=== PATIENT | female | born 1975 | race Caucasian/White ===

== ENCOUNTER 2017-05-27 09:19 | Emergency (ER) | payer OTHER ==
[~2017-05-27] VITALS: Ht 165.1 cm; Wt 81.8 kg
[~2017-05-27 09:19] MED LIST: AMOXICILLIN 50500 MG PO; CEFTIN500 MG PO; CIPRO 250MG TA250 MG PO; FLOMAX 0.40.4 MG/CAP PO; FLOMAX0.4 MG PO; NO HOME MEDICATIONS; NORCO 325 MG-51 TAB PO; NORCO 325 MG-7.1 TAB PO; PERCOCET 325 MG1 TA2 PO; PHENERGAN 25 TA25 MG PO; TYLENOL 500MG500 MG PO; ZOFRAN ODT8 MG PO
[2017-05-27 09:22] VITALS: BP 124/75; PULSE 95; TEMP 99.9
[2017-05-27] MEDS ORDERED: CLEOCIN HCL300 MG PO (10:10)
[2017-05-27] MEDS ORDERED: PERCOCET 325 MG1 TA2 PO (10:10)
[2017-05-27] MEDS ORDERED: PRENATAL PO (14:24)
== END 2017-05-27 14:37 | disposition home or self-care (01) ==
LOC: COL.ER 09:19
DX: O99.611 Diseases of the digestive system complicating pregnancy, first trimester (principal); K04.7 Periapical abscess without sinus; K08.89 Other specified disorders of teeth and supporting structures; K03.81 Cracked tooth; Z3A.09 9 weeks gestation of pregnancy

== ENCOUNTER 2019-06-22 09:31 | Emergency (ER) | payer OTHER ==
[~2019-06-22] VITALS: Ht 165.1 cm; Wt 84.1 kg
[~2019-06-22 09:31] MED LIST changes: +CLEOCIN HCL300 MG PO; +PRENATAL PO
[2019-06-22 09:39] VITALS: BP 133/98; TEMP 98.7
[2019-06-22] MEDS ORDERED: NORCO 325 MG-7.1 TAB PO (09:55)
[2019-06-22] MEDS ORDERED: AMOXICILLIN 8751 TAB PO (09:55)
[2019-06-22 10:30] VITALS: PULSE 101
== END 2019-06-22 10:25 | disposition home or self-care (01) ==
LOC: COL.ER 09:31
DX: K04.7 Periapical abscess without sinus (principal)

== ENCOUNTER 2021-11-23 07:03 | Day surgery (SDC) | payer OTHER ==
[~2021-11-23] VITALS: Ht 162.6 cm; Wt 90.0 kg
[2021-11-23] VITALS (7 sets, daily range): BP systolic 119–149; BP diastolic 71–102; PULSE 67–95; TEMP 98.1–98.6
[~2021-11-23 07:03] MED LIST changes: +AMOXICILLIN 8751 TAB PO
--- NOTE | 2021-11-23 09:44 | NUR ---
Blood pressure on re check 139/84.
[2021-11-23] MEDS ORDERED: NORCO 325 MG-51 TAB PO (14:11)
--- NOTE | 2021-11-23 15:00 | NUR ---
Patient returns to room 1 per cart from PACU and is awake and alert. IV fluids infusing and site is free of redness or swelling. Dressing to upper right side of back clean and dry. Exofin skin glue on the right axilla dry with wound edges well approximated. Denies nausea. Given Sprite to drink. Siderails up x2 and call light in reach. Family member in room. Allowed to rest.
--- NOTE | 2021-11-23 15:15 | NUR ---
Eating crackers. Denies nausea. IV fluids infusing.
--- NOTE | 2021-11-23 15:30 | NUR ---
States that she is having some discomfort to lymph node biopsy site. Small ice bag applied. Wound edges well approximated.
--- NOTE | 2021-11-23 15:44 | NUR ---
[place] 5mg on tab given for complaints of pain. Eating crackers and drinking Sprite.
--- NOTE | 2021-11-23 15:45 | NUR ---
Resting and talking with family
--- NOTE | 2021-11-23 16:00 | NUR ---
Resting and continues to deny nausea. Talking with family.
--- NOTE | 2021-11-23 16:30 | NUR ---
IV to INT. Assisted up to the bathroom and gait is steady. Voids and returns to room.
--- NOTE | 2021-11-23 16:40 | NUR ---
INT discontinued and site is free of redness. Dresses self.
--- NOTE | 2021-11-23 16:45 | NUR ---
Given dismissal instructions and voices understanding of these. Provided office number for questions and concerns.
== END 2021-11-23 16:53 | disposition home or self-care (01) ==
LOC: SDCO 07:03
DX: C43.59 Malignant melanoma of other part of trunk (principal); I10 Essential (primary) hypertension; Z85.43 Personal history of malignant neoplasm of ovary; Z83.3 Family history of diabetes mellitus; Z80.3 Family history of malignant neoplasm of breast
CPT/HCPCS: A9520; J0690; J1100; J1170; J2405; J2704; J3010; J7120

== ENCOUNTER → 2022-04-06 | Outpatient (CLI) | payer OTHER | LOC: COL.RAD 08:03 | DX: K44.9 Diaphragmatic hernia without obstruction or gangrene (principal); C43.59 Malignant melanoma of other part of trunk; R91.1 Solitary pulmonary nodule | CPT/HCPCS: Q9967 ==

== ENCOUNTER → 2023-09-14 | Outpatient (CLI) | payer OTHER ==
[~2023-09-14] VITALS: Ht 162.6 cm; Wt 79.6 kg
[2023-09-14 08:50] VITALS: BP 147/86; PULSE 65; TEMP 98
[2023-09-14 10:14] VITALS: BP 167/92; PULSE 69
== END ==
LOC: COL.RAD 08:28
DX: C43.59 Malignant melanoma of other part of trunk (principal)

== ENCOUNTER → 2024-01-09 | Outpatient (CLI) | payer OTHER ==
[2006-01-16 07:00] VITALS: BP 106/69; PULSE 62; TEMP 97.8
== END ==
LOC: MC.RAD 07:59
DX: Z12.31 Encounter for screening mammogram for malignant neoplasm of breast (principal)

== ENCOUNTER 2024-04-13 03:59 | Emergency (ER) | payer OTHER ==
[~2024-04-13] VITALS: Ht 167.6 cm; Wt 85.9 kg
[2024-04-13 04:06] VITALS: TEMP 98.4
[2024-04-13] MEDS ORDERED: Ondansetron 4 MG/2 ML VIAL IV ONE (04:45)
[2024-04-13] MEDS ORDERED: LORazepam 2 MG/ML 1 ML VIAL IV ONE (04:45)
[2024-04-13] MEDS ORDERED: NS 1,000 ML IV ONE (04:45)
[2024-04-13 04:51] LABS: BASO % 0.7 % (0.0-2.0); EOS # 0.2 K/mm3 (0.0-0.7); EOS % 3.3 % (0.0-4.0); GRAN # 4.4 K/mm3 (1.4-6.5); GRAN % 73.4 % (42.2-75.2); LYMPH % 15.7 % (20.0-51.0); MEAN CELL VOLUME 92 fl (80.0-100.0); MEAN CORPUSCULAR HGB CONC 30 g/dl (33.0-37.0); MEAN PLATELET VOLUME 8.7 fl (7.4-10.4); MONO # 0.4 K/mm3 (0.1-0.6); MONO % 6.6 % (1.7-9.3); PLATELET COUNT 232 K/mm3 (130-400); RED BLOOD COUNT 3.56 M/mm3 (4.10-5.30)
[2024-04-13 04:54] LABS: HEMATOCRIT 32.6 % (37.0-47.0); HEMOGLOBIN 9.9 g/dl (12.5-16.0); MEAN CORPUSCULAR HEMOGLOBIN 28 pg (27-31)
[2024-04-13 05:08] LABS: ALBUMIN 3.5 g/dL (3.5-5.0); BILIRUBIN,TOTAL 0.5 mg/dL (0.2-1.2); CALCIUM 8.6 mg/dL (8.4-10.2); CREATININE, serum 0.67 mg/dL (0.57-1.11); POTASSIUM 3.9 mEq/L (3.5-4.5); TOTAL PROTEIN 6.8 g/dl (6.2-8.1)
[2024-04-13 05:12] LABS: PROTHROMBIN TIME 11.2 SECONDS (9.7-12.8)
[2024-04-13 05:15] LABS: PARTIAL THROMBOPLASTIN TIME 26.6 SECONDS (26.0-37.0)
[2024-04-13] MEDS ORDERED: ATARAX 25MG25 MG/TAB PO (06:34)
[2024-04-13] MEDS ORDERED: ZOFRAN ODT4 MG PO (06:34)
[2024-04-13 06:36] VITALS: BP 124/98; PULSE 77
== END 2024-04-13 06:50 | disposition home or self-care (01) ==
LOC: COL.ER 03:59
PROVIDERS: Emergency Medicine
DX: G47.00 Insomnia, unspecified (principal); R11.0 Nausea; R53.81 Other malaise
CPT/HCPCS: J2060; J2405; J7030

== ENCOUNTER 2024-06-13 14:31 | Emergency (ER) | payer OTHER ==
[~2024-06-13] VITALS: Ht 165.1 cm; Wt 79.5 kg
[~2024-06-13 14:31] MED LIST changes: +ATARAX 25MG25 MG/TAB PO; +ZOFRAN ODT4 MG PO
[2024-06-13 14:39] VITALS: TEMP 98.4
[2024-06-13 16:35] VITALS: BP 131/88; PULSE 88
== END 2024-06-13 16:35 | disposition home or self-care (01) ==
LOC: COL.ER 14:31
DX: R22.0 Localized swelling, mass and lump, head (principal)

== ENCOUNTER → 2024-07-21 | Outpatient (CLI) | payer OTHER ==
[2024-07-21 10:14] LABS: HEMOGLOBIN 10.7 g/dl (12.5-16.0); MEAN CELL VOLUME 81 fl (80.0-100.0); MEAN CORPUSCULAR HEMOGLOBIN 24 pg (27-31); MEAN CORPUSCULAR HGB CONC 30 g/dl (33.0-37.0); MEAN PLATELET VOLUME 9.4 fl (7.4-10.4); PLATELET COUNT 244 K/mm3 (130-400); RED BLOOD COUNT 4.39 M/mm3 (4.10-5.30); REDCELL DISTRIBUTION WIDTH-CV 16.1 % (11.5-14.5)
[2024-07-21 10:23] LABS: ALBUMIN 3.4 g/dL (3.5-5.0); BILIRUBIN,TOTAL 0.5 mg/dL (0.2-1.2); CALCIUM 9.2 mg/dL (8.4-10.2); CREATININE, serum 0.72 mg/dL (0.57-1.11); POTASSIUM 3.9 mEq/L (3.5-4.5); TOTAL PROTEIN 7.1 g/dl (6.2-8.1)
[2024-07-21 10:39] LABS: HEMATOCRIT 35.5 % (37.0-47.0)
[2024-07-21 10:44] LABS: THYROID STIMULATING HORMONE 0.889 uIU/mL (0.350-4.940)
[2024-07-21 11:54] LABS: EOSINOPHIL 2 % (0-4); LYMPHOCYTE 30 % (20.0-51.0); NEUTROPHILS 57 % (42.0-75.2)
== END ==
LOC: COL.LAB 09:13
PROVIDERS: Internal Medicine
DX: C43.59 Malignant melanoma of other part of trunk (principal)

== ENCOUNTER 2024-07-30 14:49 | Emergency (ER) | payer OTHER ==
[~2024-07-30] VITALS: Ht 170.2 cm; Wt 72.7 kg
[2024-07-30 14:54] VITALS: TEMP 98.2
[2024-07-30] MEDS ORDERED: NS 1,000 ML IV ONE (17:45)
[2024-07-30 18:21] LABS: COLLECTION METHOD CLEAN CATCH
[2024-07-30 18:31] LABS: PH 5.5 (5.0-8.5); URINE APPEARANCE CLOUDY (CLEAR/HAZY); URINE BLOOD 3+ (NEGATIVE); URINE COLOR YELLOW (YELLOW); URINE GLUCOSE NEGATIVE (NEGATIVE); URINE KETONE 3+ (NEGATIVE); URINE NITRATE NEGATIVE (NEGATIVE); URINE PROTEIN(semi-quant) TRACE (NEGATIVE)
[2024-07-30 19:04] LABS: ALBUMIN 3.7 g/dL (3.5-5.0); BILIRUBIN,TOTAL 0.5 mg/dL (0.2-1.2); C-REACTIVE PROTEIN 0.24 mg/dL (0.00-0.50); CALCIUM 9.6 mg/dL (8.4-10.2); CREATININE, serum 0.77 mg/dL (0.57-1.11); POTASSIUM 3.5 mEq/L (3.5-4.5); TOTAL PROTEIN 7.6 g/dl (6.2-8.1)
[2024-07-30 19:45] LABS: BASO # 0.1 K/mm3 (0.0-0.2); BASO % 1.9 % (0.0-2.0); EOS # 0.2 K/mm3 (0.0-0.7); EOS % 5.1 % (0.0-4.0); GRAN # 1.8 K/mm3 (1.4-6.5); GRAN % 48.6 % (42.2-75.2); HEMOGLOBIN 10.5 g/dl (12.5-16.0); LYMPH # 1.2 K/mm3 (1.2-3.4); LYMPH % 32.2 % (20.0-51.0); MEAN CELL VOLUME 77 fl (80.0-100.0); MEAN CORPUSCULAR HEMOGLOBIN 24 pg (27-31); MEAN CORPUSCULAR HGB CONC 32 g/dl (33.0-37.0); MEAN PLATELET VOLUME 9.7 fl (7.4-10.4); MONO # 0.4 K/mm3 (0.1-0.6); MONO % 11.9 % (1.7-9.3); PLATELET COUNT 218 K/mm3 (130-400); REDCELL DISTRIBUTION WIDTH-CV 15.4 % (11.5-14.5)
[2024-07-30 19:46] LABS: HEMATOCRIT 33.2 % (37.0-47.0)
[2024-07-30 19:53] LABS: ERYTHROCYTE SEDIMENTATION RATE 9 mm/hr (0-20); INR 1.2 (0.8-3.0); PROTHROMBIN TIME 12.5 SECONDS (9.7-12.8)
[2024-07-30 19:56] LABS: PARTIAL THROMBOPLASTIN TIME 28.6 SECONDS (26.0-37.0)
[2024-07-30] MEDS ORDERED: Iohexol 300 - 100 ML VIAL IV ONE (19:59)
[2024-07-30] MEDS ORDERED: NS 100 ML IV ONE (19:59)
[2024-07-30 20:30] VITALS: BP 118/81
[2024-07-30] MEDS ORDERED: Cyclobenzaprine 10 MG TAB PO ONE (21:30)
[2024-07-30 21:40] VITALS: PULSE 111
== END 2024-07-30 21:40 | disposition home or self-care (01) ==
LOC: COL.ER 14:49
PROVIDERS: Emergency Medicine; Family Medicine
DX: M79.605 Pain in left leg (principal); M54.9 Dorsalgia, unspecified; D50.9 Iron deficiency anemia, unspecified; D72.819 Decreased white blood cell count, unspecified; N93.9 Abnormal uterine and vaginal bleeding, unspecified; C71.9 Malignant neoplasm of brain, unspecified
CPT/HCPCS: J7030; Q9967

== ENCOUNTER 2024-08-07 11:25 | Inpatient (IN) | payer OTHER ==
[~2024-08-07] VITALS: Ht 165.1 cm; Wt 75.5 kg
[2024-08-07] MEDS ORDERED: NS 1,000 ML IV ONE (12:00)
[2024-08-07 12:08] LABS: BASO # 0.2 K/mm3 (0.0-0.2); BASO % 2.1 % (0.0-2.0); EOS # 0.5 K/mm3 (0.0-0.7); EOS % 6.7 % (0.0-4.0); GRAN % 55.6 % (42.2-75.2); HEMATOCRIT 40.7 % (37.0-47.0); HEMOGLOBIN 13.1 g/dl (12.5-16.0); LYMPH # 1.7 K/mm3 (1.2-3.4); LYMPH % 23.5 % (20.0-51.0); MEAN CELL VOLUME 75 fl (80.0-100.0); MEAN CORPUSCULAR HEMOGLOBIN 24 pg (27-31); MEAN CORPUSCULAR HGB CONC 32 g/dl (33.0-37.0); MEAN PLATELET VOLUME 9.7 fl (7.4-10.4); MONO # 0.9 K/mm3 (0.1-0.6); MONO % 11.8 % (1.7-9.3); PLATELET COUNT 353 K/mm3 (130-400)
[2024-08-07 12:24] LABS: ALANINE AMINOTRANSFERASE 21 U/L (0-55); ALBUMIN 3.6 g/dL (3.5-5.0); ALKALINE PHOSPHATASE 79 U/L (40-150); ANION GAP 14 mmol/L (7-16); AST,SGOT 29 U/L (5-34); BILIRUBIN,TOTAL 0.5 mg/dL (0.2-1.2); BLOOD UREA NITROGEN < 5 mg/dL (10-20); CALCIUM 9.5 mg/dL (8.4-10.2); CHLORIDE 98 mEq/L (98-107); CREATININE, serum 0.79 mg/dL (0.57-1.11); GLUCOSE 97 mg/dL (70-99); POTASSIUM 3.5 mEq/L (3.5-4.5); SODIUM 128 mEq/L (136-145); TOTAL PROTEIN 7.6 g/dl (6.2-8.1)
[2024-08-07] MEDS ORDERED: TOPROL XL 25MG25 MG PO (13:33)
[2024-08-07] MEDS ORDERED: REMERON 15M15 MG/TA1 PO (13:33)
[2024-08-07] MEDS ORDERED: COMPAZINE 110 MG/TAB PO (13:33)
[2024-08-07] MEDS ORDERED: Ondansetron 4 MG/2 ML VIAL IV PRN (14:15)
[2024-08-07] MEDS ORDERED: NS 1,000 ML IV SCH (14:15)
[2024-08-07] MEDS ORDERED: Acetaminophen 325 MG TAB PO PRN (14:15)
[2024-08-07] MEDS ORDERED: Prochlorperazine 10 MG TAB PO PRN (14:45)
[2024-08-07 15:19] VITALS: BP 115/78; PULSE 98; TEMP 98.3
--- NOTE | 2024-08-07 15:22 | NUR ---
EVELYN ARRIVED TO FLOOR FROM ED. PATIENT HAVING WEAKNESS AND FEELING DIZZY OFF AND ON. FALL PRECAUTIONS PUT IN PLACE. VSS. ADMISSION, ASSESSMNT, AND MED REC COMPLETED. PATIENT HAS NO NEEDS AT THIS TIME. IV FLUIDS STARTED ORDERED AND PATIENT DECLINED LOVENOX AT THIS TIME. BED ALARM ON AND CALL LIGHT IN REACH
[2024-08-07 16:14] VITALS: BP_SYST 115
[2024-08-07 16:45] VITALS: BP_SYST 115
[2024-08-07 19:07] LABS: ANION GAP 15 mmol/L (7-16); CALCIUM 8.7 mg/dL (8.4-10.2); CHLORIDE 101 mEq/L (98-107); CREATININE, serum 0.66 mg/dL (0.57-1.11); GLUCOSE 84 mg/dL (70-99); POTASSIUM 3.3 mEq/L (3.5-4.5); SODIUM 131 mEq/L (136-145)
[2024-08-07 19:10] LABS: BLOOD UREA NITROGEN < 5 mg/dL (10-20)
[2024-08-07 20:11] VITALS: BP 111/76; PULSE 99; TEMP 98.5
[2024-08-07 20:49] VITALS: BP_SYST 111
[2024-08-07] MEDS ORDERED: Mirtazapine 15 MG TAB PO SCH (21:00)
--- NOTE | 2024-08-07 22:38 | NUR ---
patient lying in bed, alert and oriented x4. denies chest pain/discomfort and shortness of breath. IV in RAC is patent, site CDI with NS running at 100 ml/hr. small red mary noted to left upper facial cheek, scarring and dry flaking skin to left scalp noted. fall precautions in place, call light within reach. family at bedside for pt anxiety relief, pt has no further needs, questions or concerns at this time.
[2024-08-07 23:51] VITALS: BP 114/82; PULSE 112; TEMP 98.8
[2024-08-08] VITALS (12 sets, daily range): BP systolic 112–124; BP diastolic 76–83; PULSE 97–112; TEMP 98.5–101.1
[2024-08-08 09:07] LABS: BASO # 0.1 K/mm3 (0.0-0.2); BASO % 2.5 % (0.0-2.0); EOS # 0.3 K/mm3 (0.0-0.7); EOS % 8.4 % (0.0-4.0); GRAN # 1.8 K/mm3 (1.4-6.5); LYMPH # 0.9 K/mm3 (1.2-3.4); LYMPH % 25.1 % (20.0-51.0); MEAN CELL VOLUME 74 fl (80.0-100.0); MEAN CORPUSCULAR HGB CONC 32 g/dl (33.0-37.0); MEAN PLATELET VOLUME 10.4 fl (7.4-10.4); MONO # 0.5 K/mm3 (0.1-0.6); MONO % 14.7 % (1.7-9.3); REDCELL DISTRIBUTION WIDTH-CV 15.8 % (11.5-14.5)
[2024-08-08 09:12] LABS: HEMATOCRIT 30.5 % (37.0-47.0); HEMOGLOBIN 9.8 g/dl (12.5-16.0); MEAN CORPUSCULAR HEMOGLOBIN 24 pg (27-31); PLATELET COUNT 215 K/mm3 (130-400)
[2024-08-08 09:22] LABS: ANION GAP 12 mmol/L (7-16); CALCIUM 8.2 mg/dL (8.4-10.2); CHLORIDE 106 mEq/L (98-107); GLUCOSE 72 mg/dL (70-99); POTASSIUM 3.3 mEq/L (3.5-4.5); SODIUM 132 mEq/L (136-145)
[2024-08-08 09:26] LABS: BLOOD UREA NITROGEN < 5 mg/dL (10-20)
--- NOTE | 2024-08-08 10:06 | NUR ---
CRITICAL LAB REPORTED CO2 [address] SALAZAR. NO NEW ORDERS AT THIS TIME.
--- NOTE | 2024-08-08 10:16 | NUR ---
SHIFT ASSESSMENT COMPLETE. PATIENT RESTING IN BED W/ DAUGHTER AT BED SIDE. IV TO RIGHT FOREARM W/NS RUNNING AT 100ML/HR PATIENT HAVING SOME NAUSEA THIS AM AFTER TRYING TO EAT BREAKFAST ZOFRAN GIVEN ORDERED AND GAVE PATIENT SOME CRACKERS AND WATER TO HELP EASE HER STOMACH. PATIENT AND DAUGHTER HAVE NO OTHER NEEDS AT THIS TIME. CALL LIGHT IN REACH AND BED ALARM ON.
--- NOTE | 2024-08-08 13:38 | NUR ---
restaurant worker met with patient and her daughter, Sandra P# [phone], to discuss discharge planning. Patient lives in [place]. When social work faculty member asked about whom patient lives with, she began to discuss where in [place] she lives. Sandra reported patient lives with her, her other daughter and grandkids. Mirlande, daughter, P# [phone]. PCP is Dr. Bañuelos, Pharmacy is [facility]. No issues affording medications. Insurance is [employer] but she has applied for Medicare but has not been approved yet. No DPOA-HC at this time, social work faculty member expressed if patient does not have a DPOA-HC then patient's decision making would go to her and children. Sandra reported patient is not currently , so her decisions would go to her children. SW will follow up if patient is able to complete a DPOA-HC when she is more alert. No DME at home and Sandra reports patient furniture and wall surfs at home so she may need a walker. Flores reports patient receives some assistance from getting out of the bath tub and assistance with dressing. Patient does not currently have any home health services. Patient's family transports her to and from appointments. Patient's last chemo appointment is scheduled for 08/14/24. Patient would like to return home at time of discharge. Discharge plan: Home
[2024-08-08] MEDS ORDERED: Ondansetron 4 MG/2 ML VIAL IV PRN (14:00)
--- NOTE | 2024-08-08 14:00 | NUR ---
D: Central [employer] Technician stopped by room on rounds. A: Pt was resting and content. Pt has no needs right now. P: Central Sterile Supply Technician informed pt that if she needed anything from the paper cone drying machine operator area to let her nurse know. Central Sterile Supply Technician will follow up as needed.
[2024-08-08] MEDS ORDERED: Potassium Chloride 100 ML IV SCH (14:45)
[2024-08-08] MEDS ORDERED: *Potassium Replacement Protocol MC SCH (14:45)
--- NOTE | 2024-08-08 15:01 | NUR ---
REPORT GIVEN TO CARRIE HENRY. PATIENT RESTING IN BED W/ DAUGHTER AT BEDSIDE. PATIENT EXPRESSED NO NEEDS AT THIS TIME. BED ALARM ON AND CALL LIGHT IN REACH
--- NOTE | 2024-08-08 15:22 | NUR ---
REPORT FROM WILTON BUTLER. ASSUMING PT CARE AT THIS TIME.
--- NOTE | 2024-08-08 16:54 | NUR ---
cold storage worker was notified patient needs a walker. SW secure emailed walker to [facility]. SW attempted to get home health choice from patient's daughter. SW was notified they had not made a decision quite yet. Discharge plan: Home with Home health
--- NOTE | 2024-08-08 21:51 | NUR ---
PATIENT ALERT AND ORIENTED X4. VSS. PATIENT HERE FOR DEHYDRATION. PATIENT DENIES ANY PAIN AT THIS TIME. IV TO RIGHT FA WITH NS RUNNING AT 100ML/HOUR. PATIENT ON RA. PM MEDS ADMINISTERED. NO FURTHER NEEDS. CALL LIGHT IN REACH. BED ALARM ON.
--- NOTE | 2024-08-08 22:36 | NUR ---
PATIENT TEMP REVEALED 101.1. PRN TYLENOL ADMINISTERED. BLANKETS REMOVED FROM PATIENT.
[2024-08-09] VITALS (12 sets, daily range): BP systolic 93–131; BP diastolic 63–87; PULSE 95–121; TEMP 97.7–100.5
[2024-08-09 08:27] LABS: BASO # 0.1 K/mm3 (0.0-0.2); BASO % 1.8 % (0.0-2.0); EOS # 0.3 K/mm3 (0.0-0.7); EOS % 7.2 % (0.0-4.0); GRAN % 51.6 % (42.2-75.2); HEMOGLOBIN 10.3 g/dl (12.5-16.0); LYMPH # 0.9 K/mm3 (1.2-3.4); LYMPH % 23.3 % (20.0-51.0); MEAN CELL VOLUME 77 fl (80.0-100.0); MEAN CORPUSCULAR HEMOGLOBIN 24 pg (27-31); MEAN CORPUSCULAR HGB CONC 32 g/dl (33.0-37.0); MEAN PLATELET VOLUME 10.1 fl (7.4-10.4); MONO # 0.6 K/mm3 (0.1-0.6); MONO % 15.6 % (1.7-9.3); PLATELET COUNT 224 K/mm3 (130-400); RED BLOOD COUNT 4.22 M/mm3 (4.10-5.30); REDCELL DISTRIBUTION WIDTH-CV 16.4 % (11.5-14.5)
[2024-08-09 08:29] LABS: HEMATOCRIT 32.6 % (37.0-47.0)
[2024-08-09 08:31] LABS: ANION GAP 11 mmol/L (7-16); CHLORIDE 103 mEq/L (98-107); CREATININE, serum 0.61 mg/dL (0.57-1.11); GLUCOSE 75 mg/dL (70-99); POTASSIUM 4.1 mEq/L (3.5-4.5); SODIUM 131 mEq/L (136-145)
[2024-08-09 08:34] LABS: BLOOD UREA NITROGEN < 5 mg/dL (10-20)
--- NOTE | 2024-08-09 14:20 | NUR ---
Dr. Peralta requests that the antibiotic she just ordered be started after the patient provides a urine specimen.
--- NOTE | 2024-08-09 14:52 | NUR ---
Data: Spiritual care visit attempted. Patient sleeping. Visitor was lying down on window seat. Declined visit. Thanked Volunteer Manager for the offer. Assessment: None at this time. Plan of Care: Chaplains will remain available as needed/requested while Patient is admitted to this hospital.
[2024-08-09 15:23] LABS: COLLECTION METHOD CLEAN CATCH
[2024-08-09 15:30] LABS: PH 5.5 (5.0-8.5); URINE APPEARANCE CLEAR (CLEAR/HAZY); URINE BLOOD NEGATIVE (NEGATIVE); URINE COLOR YELLOW (YELLOW); URINE GLUCOSE NEGATIVE (NEGATIVE); URINE KETONE 4+ (NEGATIVE); URINE NITRATE NEGATIVE (NEGATIVE); URINE PROTEIN(semi-quant) NEGATIVE (NEGATIVE)
--- NOTE | 2024-08-09 16:20 | NUR ---
Pt provided urine specimen- Vancomycin and Zosyn administered IV as ordered. Pt notified of results- verbalizes understanding. Rates low back pain 2/10- declines offer for Tylenol. Pt reports feeling very tired today and has rested quietly throughout the day. Family member has been at bedside today.
--- NOTE | 2024-08-09 16:42 | NUR ---
sanitation worker hosing machinery checked in with patient and family in regards to a decision for home health services and referrals. Patient's daughter bobby stated that she was "in the process" of choosing a home health agency and that a decision had not been made yet. Bobby reported that she will call social worker palliative care with a decision. sanitation worker hosing machinery to call Bobby again tomorrow for a decision.
[2024-08-10] VITALS (11 sets, daily range): BP systolic 93–118; BP diastolic 65–80; PULSE 72–115; TEMP 97.5–99.6
--- NOTE | 2024-08-10 01:13 | NUR ---
ASSESSMENT COMPLETED EARLIER. MEDICATIONS ADMINISTERED PER EMAR. SON AT BEDSIDE. NO COMPLAINTS AT THIS TIME. IV FLUIDS INFUSING WITH NO SIGNS OR SYMPTOMS OF PHLEBITIS. DENEIES N/V.
[2024-08-10 06:40] LABS: ANION GAP 11 mmol/L (7-16); CHLORIDE 106 mEq/L (98-107); CREATININE, serum 0.69 mg/dL (0.57-1.11); GLUCOSE 80 mg/dL (70-99); POTASSIUM 4.2 mEq/L (3.5-4.5); SODIUM 130 mEq/L (136-145)
[2024-08-10 06:44] LABS: BLOOD UREA NITROGEN < 5 mg/dL (10-20)
--- NOTE | 2024-08-10 06:48 | NUR ---
NORMAN NOTIFIED OF CRITICAL LAB VALUE- CO2 13L
[2024-08-10 07:21] LABS: HEMOGLOBIN 11.3 g/dl (12.5-16.0); MEAN CELL VOLUME 76 fl (80.0-100.0); MEAN CORPUSCULAR HEMOGLOBIN 24 pg (27-31); MEAN CORPUSCULAR HGB CONC 32 g/dl (33.0-37.0); MEAN PLATELET VOLUME 11.3 fl (7.4-10.4); PLATELET COUNT 249 K/mm3 (130-400); RED BLOOD COUNT 4.63 M/mm3 (4.10-5.30); REDCELL DISTRIBUTION WIDTH-CV 16.7 % (11.5-14.5)
[2024-08-10 07:22] LABS: HEMATOCRIT 35.1 % (37.0-47.0)
--- NOTE | 2024-08-10 09:24 | NUR ---
Assessment completed. Pt a/o x4. Denies pain. IVF infusing to RH without s/s IV related complications. Denies nausea. Appetite poor. Sitting up in bed eating breakfast. Son at bedside. Fall precautions in place.
--- NOTE | 2024-08-10 13:50 | NUR ---
Assisted patient shower and then SBA to chair. Patient sat up in chair for approximately 1 1/2 hours this afternoon. Now resting in bed. Reports that she attempted to eat lunch but "nothing tastes good" to her. Encouraged patient to have family bring in food that she feels she may like, if needed, and to snack throughout the day. Pt would like to try jello- jello given to patient. Denies pain or needs at this time. At times patient has a difficult time expressing what her thoughts are but is a/o x4. Daughter at bedside.
--- NOTE | 2024-08-10 15:11 | NUR ---
chemical research worker met with patient and dtr at bedside to follow up about home health agency choices. Patient states that her dtr Sandra had been looking, but that she has not been to the hospital in a few days. SW presented patient and dtr with a new Medicare.gov list of HH agencies in the area and will return for choices for referrals on Sunday. D/C: Home with HH
--- NOTE | 2024-08-10 21:20 | NUR ---
PATIENT ALERT AND ORIENTED X4. VSS. PATIENT HERE FOR DEHYDRATION, FALLS/ UTI. PATIENT DENIES ANY PAIN AT THIS TIME. IV TO RIGHT HAND WITH NS RUNNING AT 100ML/HOUR. PM MEDS ADMINISTERED. NO FURTHER NEEDS. CALL LIGHT IN REACH. BED ALARM ON.
[2024-08-11 00:04] VITALS: BP 101/64; PULSE 87; TEMP 97.4
[2024-08-11 01:47] VITALS: BP_SYST 101
[2024-08-11 03:50] VITALS: BP 111/74; PULSE 91; TEMP 97.9
[2024-08-11 05:01] VITALS: BP_SYST 111
[2024-08-11 07:46] LABS: BASO % 0.9 % (0.0-2.0); GRAN # 2.5 K/mm3 (1.4-6.5); GRAN % 71.6 % (42.2-75.2); LYMPH # 0.6 K/mm3 (1.2-3.4); LYMPH % 18.1 % (20.0-51.0); MEAN CELL VOLUME 76 fl (80.0-100.0); MEAN CORPUSCULAR HGB CONC 32 g/dl (33.0-37.0); MEAN PLATELET VOLUME 11.1 fl (7.4-10.4); MONO # 0.3 K/mm3 (0.1-0.6); MONO % 8.5 % (1.7-9.3); PLATELET COUNT 251 K/mm3 (130-400); RED BLOOD COUNT 3.96 M/mm3 (4.10-5.30); REDCELL DISTRIBUTION WIDTH-CV 17.1 % (11.5-14.5)
[2024-08-11 07:48] LABS: HEMATOCRIT 30.1 % (37.0-47.0); HEMOGLOBIN 9.7 g/dl (12.5-16.0); MEAN CORPUSCULAR HEMOGLOBIN 24 pg (27-31)
[2024-08-11 07:53] LABS: ANION GAP 13 mmol/L (7-16); CALCIUM 8.1 mg/dL (8.4-10.2); CHLORIDE 116 mEq/L (98-107); CREATININE, serum 0.61 mg/dL (0.57-1.11); GLUCOSE 138 mg/dL (70-99); POTASSIUM 3.6 mEq/L (3.5-4.5); SODIUM 138 mEq/L (136-145)
[2024-08-11 07:54] LABS: BLOOD UREA NITROGEN < 5 mg/dL (10-20)
--- NOTE | 2024-08-11 07:59 | NUR ---
CRITICAL LAB REPORTED TO DR. NGUYEN, CO2 9. NO NEW ORDERS PLACED AT THIS TIME.
[2024-08-11 08:00] VITALS: BP_SYST 116
[2024-08-11] MEDS ORDERED: *Potassium Replacement Protocol MC SCH (08:15)
[2024-08-11] MEDS ORDERED: Potassium Bicarbonate/Citrate 20 MEQ Effervescent TAB PO SCH (08:15)
[2024-08-11 09:47] VITALS: BP 116/76; PULSE 97; TEMP 98.2
[2024-08-11] MEDS ORDERED: AMOXICILLIN 8751 TAB PO (10:51)
[2024-08-11] MEDS ORDERED: SODIUM BICARBO650 MG PO (10:52)
[2024-08-11] MEDS ORDERED: ZOFRAN ODT4 MG PO (10:52)
[2024-08-11] MEDS ORDERED: CORTEF 10MG TAB10 MG PO (10:53)
--- NOTE | 2024-08-11 10:53 | NUR ---
SHIFT ASSESSMENT COMPLETE. VSS. PATIENT IS RESTING IN BED RR 16 W/ DAUGHTER AT BEDSIDE. ALL MORNING MEDS GIVEN ORDERED. PATIENT STATES NO PAIN AT THIS TIME. NOT FEELING VERY HUNGRY DECLINED BREAKFAST FROM THIS NURSE. PATIENT HAS NO REQUEST AT THIS TIME. BED ALARM ON AND CALL LGITH IN REACH
--- NOTE | 2024-08-11 13:20 | NUR ---
hired worker was notified patient is medically ready to discharge today. SW met with patient and her family to discuss home health. Patient decided she did not need those services at this time but possibly in the future. SW explained to patient and the family that if patient gets home and needs it she would just set and appointment with her PCP to get that scheduled. Family understood. SW explained she had her walker ordered and she could pick up worker at [facility] as patient was already dressed and ready to go. SW provided address to [facility]. Discharge plan: Home
[2024-08-11] MEDS ORDERED: Amoxicillin/Clavulanate K+ 875/125 MG TAB PO SCH (17:00)
== END 2024-08-11 12:15 | disposition home or self-care (01) | DRG 641 ==
LOC: COL.ER 11:25 → SURG 14:00
PROVIDERS: Internal Medicine; Physician Assistant; ADMIT Internal Medicine
DX: E87.1 Hypo-osmolality and hyponatremia (principal); C79.81 Secondary malignant neoplasm of breast; C79.31 Secondary malignant neoplasm of brain; I10 Essential (primary) hypertension; I95.9 Hypotension, unspecified; Z51.11 Encounter for antineoplastic chemotherapy; E87.20 Acidosis, unspecified; E87.6 Hypokalemia; D72.819 Decreased white blood cell count, unspecified; E86.1 Hypovolemia
CPT/HCPCS: J1650; J2405; J2543; J3370; J3480; J7030; J7050